=== PATIENT | male | born 1940 | race Caucasian/White ===

== ENCOUNTER 2019-09-26 09:30 | Outpatient (CLI) | payer MEDICARE ==
[~2019-09-26 09:30] MED LIST: AMLO5TAB4 PO; ATOR20TA PO; BACI1PAC7 TP; FLO0.4C PO; LOSA50TA3 PO; PHEN100C4 PO; TROS20TA4 PO
[2019-09-26] MEDS ORDERED: silver sulfadiazine cream 50gm TP ONE (10:46)
== END 2019-09-26 10:59 | disposition home or self-care (01) ==
LOC: EDSTATUS 09:30 → WOUND CARE 09:30
PROVIDERS: ATTEND Surgery
DX: T21.34XA Burn of third degree of lower back, initial encounter (principal); T21.30XA Burn of third degree of trunk, unspecified site, initial encounter; N40.1 Benign prostatic hyperplasia with lower urinary tract symptoms; R33.9 Retention of urine, unspecified; I10 Essential (primary) hypertension; E78.5 Hyperlipidemia, unspecified; E43 Unspecified severe protein-calorie malnutrition; G40.909 Epilepsy, unspecified, not intractable, without status epilepticus; I48.91 Unspecified atrial fibrillation; Z87.891 Personal history of nicotine dependence; Z79.899 Other long term (current) drug therapy; Z68.22 Body mass index [BMI] 22.0-22.9, adult; X08.8XXA Exposure to other specified smoke, fire and flames, initial encounter; Y93.89 Activity, other specified; Y92.89 Other specified places as the place of occurrence of the external cause; Y99.8 Other external cause status
CPT/HCPCS: A6213; G0463

== ENCOUNTER 2019-11-07 07:49 | Emergency (ER) | payer MEDICARE, OTHER ==
[~2019-11-07] VITALS: Ht 193 cm; Wt 94.1 kg
[2019-11-07 08:28] LABS: BASOPHILS # (AUTO) 0.1 X10'3 (0-0.2); BASOPHILS % (AUTO) 0.8 % (0-1); EOSINOPHILS # (AUTO) 0.7 X10'3 (0-0.9); EOSINOPHILS % (AUTO) 11.2 % (0-6); HEMATOCRIT 40.7 % (42.0-52.0); HEMOGLOBIN 13.7 g/dl (14.0-17.9); LYMPHOCYTES # (AUTO) 1.3 X10'3 (1.1-4.8); LYMPHOCYTES % (AUTO) 20.4 % (21-51); MEAN CORPUSCULAR HEMOGLOBIN 33.4 PG (27.0-31.0); MEAN CORPUSCULAR HGB CONC 33.7 g/dL (33.0-36.5); MEAN PLATELET VOLUME 7.8 FL (7.4-10.4); MONOCYTES # (AUTO) 0.6 X10'3 (0-0.9); MONOCYTES % (AUTO) 9.1 % (2-12); NEUTROPHILS # (AUTO) 3.8 X10'3 (1.8-7.7); NEUTROPHILS % (AUTO) 58.5 % (42-75); PLATELET COUNT 214 X10'3 (140-440); RED BLOOD COUNT 4.12 X10'6 (4.70-6.10); RED CELL DISTRIBUTION WIDTH 14.3 % (11.5-14.5); WHITE BLOOD COUNT 6.5 X10'3 (4.5-11.0)
[2019-11-07 08:39] LABS: ALANINE AMINOTRANSFERASE 19 U/L (12-78); ALBUMIN 3.7 G/DL (3.4-5.0); ALKALINE PHOSPHATASE 152 IU/L (46-116); ANION GAP 6 (8-16); ASPARTATE AMINO TRANSFERASE 17 U/L (10-37); BILIRUBIN,TOTAL 0.4 MG/DL (0.1-1.0); BLOOD UREA NITROGEN 12 MG/DL (7-18); BUN/CREATININE RATIO 16.4 (5.4-32.0); CALCIUM 9.1 MG/DL (8.5-10.1); CHLORIDE 100 MMOL/L (99-107); CREATININE 0.73 MG/DL (0.60-1.10); GLUCOSE 100 MG/DL (70-104); POTASSIUM 3.6 MMOL/L (3.5-5.1); SODIUM 136 MMOL/L (135-145); TOTAL PROTEIN 7.3 G/DL (6.4-8.2); eGFR > 90 ML/MIN
[2019-11-07] MEDS ORDERED: furosemide 10 MG/1 ML 10ml inj IV ONE (09:00)
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
--- NOTE | 2019-11-07 09:37 | NUR ---
TC TO , DECEMBER, TO INFORM OF DISCHARGE STATUS. STATES SHE WILL BE HERE IN APPROX 30 MINUTES.
[2019-11-07 10:10] VITALS: BP 165/83
== END 2019-11-07 10:14 | disposition home or self-care (01) ==
LOC: ER 07:50
DX: R79.89 Other specified abnormal findings of blood chemistry (principal); R22.43 Localized swelling, mass and lump, lower limb, bilateral; Z79.2 Long term (current) use of antibiotics; Z79.899 Other long term (current) drug therapy
CPT/HCPCS: 71045; 80053; 83880; 85025; 93005; 96374; 99285; J1940